=== PATIENT | female | born 1990 | race Hispanic/Latino ===

== ENCOUNTER 2019-03-25 09:08 | Outpatient (CLI) | payer OTHER ==
--- NOTE | 2019-03-25 15:52 | ULT ---
OBSTETRIC ULTRASOUND: INDICATIONS: Evaluate size and dates. COMPARISON: None. FINDINGS: There is a single live intrauterine gestation in a variable presentation. The placenta is anterior i n location without evidence of previa. INDY measures 11.85 cm. Cardiac activity is noted at 142 beat s per minute. The visualized head, heart, stomach, kidneys, bladder, cord insertion, spine, lips, nose, and t hree vessel cord appear within normal limits. Biparietal diameter measures 4.49 cm, giving an estimated gestational age of 19 weeks 4 days. Head circumference measures 16.85 cm, giving an estimated gestational age of 19 weeks 3 days. Abdominal circumference is 14.24 cm, giving an estimated gestational age of 19 weeks 4 days. Femoral length is 3.06 cm, giving an estimated gestational age of 19 weeks 3 days. Estimated weight is 298.56 g, plus or minus 44.78 g (11 oz), 22nd percentile. The average gestational age by ultrasound is 19 weeks 2 days, plus or minus 1 week 0 days with an est imated due date is 08/17/2019. The clinical age is 20 weeks 0 days with an estimated due date of . IMPRESSION: 1. Single live intrauterine gestation with size and dates as above. 2. The visualized survey appears within normal limits. POS: CET
== END 2019-03-25 09:09 | disposition home or self-care (01) ==
LOC: NAV ULT 09:08
PROVIDERS: ATTEND Family Medicine
DX: Z34.82 Encounter for supervision of other normal pregnancy, second trimester (principal); Z3A.19 19 weeks gestation of pregnancy
CPT/HCPCS: 76805